=== PATIENT | female | born 1950 | race Caucasian/White ===

== ENCOUNTER 2018-03-05 09:01 | Day surgery (SDC) | payer OTHER ==
[2018-03-05] MEDS: TETRACAINE 0.5% UNIT-DOSE OP PRN ×2 (10:50→11:11)
[2018-03-05] MEDS: BETADINE OPTH PREP OP PRN ×2 (10:50→11:11)
[2018-03-05] MEDS: CYCLOGYL 2% OPTH OP PRN ×3 (10:51→11:01)
[2018-03-05] MEDS ORDERED: LIDOCAINE 1% 20 ML MDV ID STA (11:01)
[2018-03-05] MEDS ORDERED: BRIMONIDINE TARTRATE 0.2% OPTH SOL OP PRN (11:01)
[2018-03-05] MEDS ORDERED: ZOFRAN 4 MG/2 ML IVP ONE (11:01)
[2018-03-05] MEDS: BSS WITH EPINEPHRINE OP ONE ×2 (11:13→11:36)
[2018-03-05] MEDS: DEX-MOXI-KETOR OPTH INJ 1/0.5/0.4 MG/ML IO ONE ×2 (11:13→11:36)
[2018-03-05] MEDS: LIDOCAINE 1%/PHENYLEPHRINE 1.5% BSS (SURGERY) INTRAOCULA ONE ×2 (11:13→11:36)
[2018-03-05] MEDS ORDERED: SUBLIMAZE ONE (11:30)
[2018-03-05] MEDS ORDERED: ZOFRAN 4 MG/2 ML ONE (11:30)
[2018-03-05] MEDS ORDERED: VERSED ONE (11:30)
[2018-03-05 14:15] VITALS: TEMP 98.4
[2018-03-07 10:55] VITALS: BP 121/56
== END 2018-03-05 12:30 | disposition home or self-care (01) ==
LOC: SURG 09:01
PROVIDERS: ATTEND Ophthalmology
DX: H25.811 Combined forms of age-related cataract, right eye (principal)

== ENCOUNTER 2018-03-25 08:01 | Day surgery (SDC) ==
[2018-03-25] MEDS: TETRACAINE 0.5% UNIT-DOSE OP PRN ×3 (08:40→09:21)
[2018-03-25] MEDS: BETADINE OPTH PREP OP PRN ×2 (08:40→09:15)
[2018-03-25] MEDS: CYCLOGYL 2% OPTH OP PRN ×3 (08:41→08:51)
[2018-03-25] MEDS ORDERED: BRIMONIDINE TARTRATE 0.2% OPTH SOL OP PRN (08:47)
[2018-03-25] MEDS ORDERED: BSS WITH EPINEPHRINE OP ONE (08:47)
[2018-03-25] MEDS ORDERED: DEX-MOXI-KETOR OPTH INJ 1/0.5/0.4 MG/ML IO ONE (08:47)
[2018-03-25] MEDS ORDERED: LIDOCAINE 1%/PHENYLEPHRINE 1.5% BSS (SURGERY) INTRAOCULA ONE (08:47)
[2018-03-25] MEDS ORDERED: ZOFRAN 4 MG/2 ML IVP ONE (08:47)
[2018-03-25] MEDS ORDERED: LIDOCAINE 1% 20 ML MDV ID STA (08:47)
[2018-03-25 08:53] VITALS: TEMP 97
[2018-03-25] MEDS ORDERED: VERSED ONE (09:15)
[2018-03-25] MEDS ORDERED: SUBLIMAZE ONE (09:15)
[2018-03-25] MEDS ORDERED: ZOFRAN 4 MG/2 ML ONE (09:15)
[2018-03-27 12:16] VITALS: BP 132/78
== END 2018-03-25 10:20 | disposition home or self-care (01) ==
LOC: SURG 08:01
PROVIDERS: ATTEND Ophthalmology
DX: H25.812 Combined forms of age-related cataract, left eye (principal)